=== PATIENT | female | born 1950 | race African-American/Black ===

== ENCOUNTER → 2017-01-13 10:56 | Outpatient (CLI) | payer MEDICARE, OTHER ==
[~2017-01-13 10:56] MED LIST: BUSPAR5 MG PO; HYDROCODONE-APA1 TAB PO; IBUPROFEN800 MG PO; TENORMIN25 MG PO; VIC-FORTE CAPSUL1 MG PO; VITAMIN C1000 MG PO; ZETIA10 MG PO
[2017-03-02 06:05] VITALS: BMI 28.8
== END | disposition home or self-care (01) ==
LOC: D.MRI 10:56
DX: M25.511 Pain in right shoulder (principal)

== ENCOUNTER 2017-03-02 05:19 | Day surgery (SDC) | payer MEDICARE, OTHER ==
[2017-03-01 16:02] LABS: HEMATOCRIT 39.3 % (36.0-48.0); HEMOGLOBIN 12.3 g/dL (12-16); MCH 26.8 pg (26.0-34.0); MCHC 31.3 g/dL (31.0-37.0); MCV 85.6 fL (80.0-100.0); MEAN PLATELET VOLUME 11.4 fL (7.4-10.4); RBC 4.59 10x6/uL (4.00-5.40); RDW 13.2 % (11.5-14.5)
[~2017-03-02 05:19] MED LIST changes: -HYDROCODONE-APA1 TAB PO
[2017-03-02] MEDS ORDERED: HYDROCODONE-APA1 TAB PO (08:25)
== END 2017-03-02 10:05 | disposition home or self-care (01) ==
LOC: D.OPS 05:19
PROVIDERS: Anesthesiology
DX: M75.41 Impingement syndrome of right shoulder (principal); M75.101 Unspecified rotator cuff tear or rupture of right shoulder, not specified as traumatic; M25.511 Pain in right shoulder; K21.9 Gastro-esophageal reflux disease without esophagitis; Z01.812 Encounter for preprocedural laboratory examination

== ENCOUNTER 2018-09-12 11:43 | Outpatient (CLI) | payer MEDICARE, OTHER ==
[~2018-09-12] VITALS: Ht 157.5 cm; Wt 70.5 kg
--- NOTE | ~2018-09-12 | HEMODYNAMI ---
PATIENT:MERCY DUPREE C MEDICAL RECORD: [id number] : 50 LOCATION:[facility] ADMISSION DATE: 09/12/18 Generatedon:09/12/201815:44 Patient name: MERCY DUPREE Patient #: [id number] SSN: D OB: 1950 Date of study: 09/12/2018 Page: Of Hemodynamic Procedure Report Patient Data Patient Demographics Procedure consent was obtained First Name: MERCY Gender: Female Last Name: JOON : 1950 Middle Initial: M C Age: 68 year(s) Patient #: [id number] Race: Black Additional ID: [id number] Contact details Address: [address] State: [place] City: [place] Zip code: [address] Past Medical History Allergies Allergen Reaction Date Comments Reported Other allergy 09/12/2018 Mycins, garlic, PCN, sulfa Admission Admission Data Admission Date: 09/12/2018 Admission Time: 11:43 Height (in.): 62 BSA: 1.72 (m2) Height (cm.): 157.48 BMI: 28.41 (kg/m2) Weight (lbs.): 155.32 Weight (kg.): 70.45 Lab Results Lab Result Date: 09/12/2018 Lab Result Time: 0:00 Biochemistry Name Units Result Min Max BUN mg/dl 12 --(-*--)-- 7 18 Creatinine mg/dl 0.9 --(-*--)-- 0.6 1.3 CBC Name Units Result Min Max Hematocrit % 37.8 *-(----)-- 42 54 Hemoglobin g/dl 11.8 *-(----)-- 13.5 17.5 Procedure Procedure Types Cath Procedure Diagnostic Procedure [facility] w/Coronaries Procedure Description Procedure Date Procedure Date: 09/12/2018 Procedure Start Time: 15:34 Procedure End Time: 15:43 Procedure Staff Name Function Jigar Rodriguez MD Performing Physician Fariba Tam RT Monitor Gianfranco Tapia RT Scrub Sukhjinder Rob RN Nurse Sherly Baird RN Nurse Procedure Data Cath Procedure Fluoroscopy Diagnostic fluoroscopy Total fluoroscopy Time: 1.7 time: 1.7 min min Diagnostic fluoroscopy Total fluoroscopy dose: 314 dose: 314 mGy mGy Contrast Material Contrast Material Type Amount (ml) Isovue 300 48 Entry Location Entry Primary Successful Side Size Upsize Upsize Entry Closure Lomeli ccessful Closure Location (Fr) 1 (Fr) 2 (Fr) Remarks Device Remarks Femoral Right 5 Fr Mechanical tr artery Compression Estimated blood loss: 10 ml Diagnostic catheters Device Type Used For End Catheter Placement DIAGNOSTIC [place] 110cm 5 Procedure Fr catheter ([id number]) Procedure Complications No complications Procedure Medications Medication Administration Route Dosage 0.9% NaCl I.V. 100 ml/hr Oxygen etCO2 Nasal cannula 2 l/min Lidocaine 2% added to field 20 Heparin Flush Bag added to field 2 bags (1000units/500ml NS) Radial Cocktail added to field 1 syringe (Verapomil 2mg/Nitro 400mcg/Heparin 1500units) Fentanyl I.V. 50 mcg Versed I.V. 1 mg Fentanyl I.V. 50 mcg Versed I.V. 1 mg Radial Cocktail I.A. 1 syringe (Verapomil 2mg/Nitro 400mcg/Heparin 1500units) Hemodynamics Rest BSA: 1.72 (m2) O2 Consumption: Estimated: 155.09 (ml/min) O2 Consumption indexed : Estimated:90.17 (ml/min/m) Heart Rate: 63 (bpm) Pressure Samples Time Site Value (mmHg) Purpose Heart Use Rate(bpm) 15:38 LV 96/0,8 Snapshot 63 15:38 AO 101/59(77) Pullback 71 15:38 LV 109/5,8 Pullback 71 Gradients Valve Time Site 1 Site 2 Mean SEP/DFP Peak To Heart Use (mmHg) (sec/min) Peak Rate (mmHg) (bpm) Aortic 15:38 LV AO 4 14 8 71 109/5,8 101/59(77) Calculations Valve P-P Mean Valve Index Valve Source Name Gradient Area Flow (cm2) Aortic 8 4 8 4 Snapshots Pre Cath Intra NCS Post Cath Vital Signs Time Heart Resp SPO2 etCO2 NIBP Rhythm Pain Sedation Rate (ipm) (%) (mmHg) (mmHg) Status Level (bpm) 15:24:01 63 18 100 0 124/70(93) NSR 0 (11) 10(A) , No pain 15:28:04 64 17 100 30.8 129/79(93) NSR 0 (11) 10(A) , No pain 15:32:16 62 16 92 26.3 103/63(81) NSR 0 (11) 10(A) , No pain 15:36:12 55 17 100 38.3 114/87(99) NSR 0 (11) 10(A) , No pain 15:40:19 66 17 98 40.6 114/59(78) NSR 0 (11) 10(A) , No pain 15:43:30 64 17 100 40.6 108/67(79) NSR 0 (11) 10(A) , No pain Medications Time Medication Route Dose Verified Delivered Reason Notes Effectiveness by by 15:27:49 0.9% NaCl I.V. 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 50 mcg Jigar Sukhjinder for sedation Michael Rob RN 15:30:49 Versed I.V. 1 mg Jigar Sukhjinder for sedation Michael Rob RN 15:37:23 Fentanyl I.V. 50 mcg Jigar Sukhjinder for sedation Michael Rob RN 15:37:28 Versed I.V. 1 mg Jigar Sukhjinder for sedation Michael Rob RN 15:37:52 Radial Cocktail I.A. 1 Jigar Jigar for (Verapomil syringe Michael Rodriguez MD vasodilation 2mg/Nitro 400mcg/Heparin 1500units) Procedure Log Time Note 14:51:50 Gianfranco Tapia RT(R) sent for patient. Start room use. 15:01:08 Patient Height : 62 inches 15:01:15 Patient Weight : 155.32 lbs 15:01:47 Diagnostic Cath status Elective 15:01:51 Time tracking: Regular hours (M-F 7:00 - 5:00) 15:01:57 Plan of Care:Hemodynamics will remain stable., Cardiac rhythm will remain stable., Comfort level will be maintained., Respiratory function will remain adequate., Patient/ family verbilizes understanding of procedure., Procedure tolerated without complication., Recovers from procedure without complications.. 15:02:02 Patient received from Pre/Post Procedure Room to CCL 2 Alert and oriented. Tansferred to table in Supine position. 15:02:04 Warm blankets applied, and kami hugger turned on for patient comfort. 15:08:36 Correct patient and procedure confirmed by team. 15:08:38 Signed procedure consent form obtained from patient. 15:09:03 Pre-procedure instructions explained to patient. 15:09:05 Family in waiting room. 15:09:07 Patient NPO since Midnight. 15:09:57 Patient allergic to Other allergyMycins, garlic, PCN, sulfa 15:10:00 Is the patient allergic to Iodine/contrast media? No. 15:10:16 Was the patient premedicated? Yes 15:10:26 Airway obstruction? No ? 15:10:39 Dentures? Yes in tight 15:10:54 Patient diabetic? No. 15:10:57 Snore? Yes 15:11:01 Sleep apnea? No 15:11:12 Patient pain scale 0/10 ?. 15:11:26 IV patent on arrival in left forearm with 0.9% NaCl at KVO. 15:11:42 Lab results completed and on chart. 15:11:48 Right Radial & Right Groin area was prepped with chlora-prep and draped in sterile fashion 15:11:49 Alarms reviewed by R. N. 15:11:50 Sharps counted by scrub and verified by R.N. 15:11:53 Physician paged 15:14:27 Use device set Radial Dx or PCI 15:14:28 ACIST Syringe (43862) opened to sterile field. 15:14:29 Medline Cath Pack ([id number]) opened to sterile field. 15:14:30 Bag Decanter () opened to sterile field. 15:14:31 DIAGNOSTIC WIRE .035 260cm J wire ([id number]) opened to sterile field. 15:14:32 ACIST Hand Control (43716) opened to sterile field. 15:14:33 ACIST Manifold (69007) opened to sterile field. 15:14:33 Tegaderm 4 x 4 (1626W) opened to sterile field. 15:14:34 MBrace Wrist Support ([id number]) opened to sterile field. 15:14:38 SHEATH 6Fr Prelude Radial ([id number]) opened to sterile field. 15:19:14 Lab Result : Hemoglobin 11.8 g/dl 15:19:14 Lab Result : Creatinine 0.9 mg/dl 15:19:14 Lab Result : BUN 12 mg/dl 15:19:14 Lab Result : Hematocrit 37.8 % 15:22:51 Vital chart was started 15:27:49 0.9% NaCl 100 ml/hr I.V. was administered by Sherly Baird RN; used for procedure; 15:27:57 Oxygen 2 l/min etCO2 Nasal cannula was administered by Sherly Baird RN; used for procedure; 15:28:03 Lidocaine 2% 20ml vial added to field was administered by Jigar Rodriguez MD; for local anesthetic; 15:28:09 Heparin Flush Bag (1000units/500ml NS) 2 bags added to field was administered by Jigar Rodriguez MD; used for procedure; 15:28:16 Radial Cocktail (Verapomil 2mg/Nitro 400mcg/Heparin 1500units) 1 syringe added to field was administered by Jigar Rodriguez MD; used for procedure; 15:30:34 Physician arrived 15:30:34 --------ALL STOP TIME OUT------ 15:30:35 Final Timeout: patient, procedure, and site verified with staff and physician. All members of the team are in agreement. 15:30:38 Right Radial & Left Groin site verified by team. 15:30:41 Fentanyl 50 mcg I.V. was administered by Sukhjinder Rob RN; for sedation; 15:30:49 Versed 1 mg I.V. was administered by Sukhjinder Rob RN; for sedation; 15:34:01 Procedure started. 15:34: Full Disclosure recording started 15:34:15 Local anesthetic to right radial artery with Lidocaine 2% by Jgiar Rodriguez MD.INITIAL ACCESS ONLY 15:34:27 Zero performed for pressure channel P1 15:34:44 Zero performed for pressure channel P1 15:36:04 A 5 Fr sheath was inserted into the Right Femoral artery 15:37:23 Fentanyl 50 mcg I.V. was administered by Sukhjinder Rob RN; for sedation; 15:37:28 Versed 1 mg I.V. was administered by Sukhjinder Rob RN; for sedation; 15:37:39 NEEDLE Cook 21G 4cm Radial ([id number]) opened to sterile field. 15:37:47 A DIAGNOSTIC [place] 110cm 5 Fr catheter ([id number]) was advanced over the wire and used for Procedure. 15:37:52 Radial Cocktail (Verapomil 2mg/Nitro 400mcg/Heparin 1500units) 1 syringe I.A. was administered by Jigar Rodriguez MD; for vasodilation; 15:38:35 EF : 60 % 15:39:00 LCA angiography performed. 15:40:04 RCA angiography performed. 15:40:25 Catheter removed. 15:40:29 TR BAND Standard ([id number]) opened to sterile field. 15:41:02 Sheath removed intact; hemostasis achieved with Mechanical Compression to the Right Femoral artery. 15:41:05 Procedure ended.(Physican Out) 15:41:29 Fluoroscopy time 01.70 minutes. 15:41:33 Fluoroscopy dose: 314 mGy 15:41:33 Flurop Dose total: 314 15:41:37 Contrast amount:Isovue 300 48ml. 15:41:39 Sharps counted by scrub and verified by R.N. 15:42:00 Insertion/operative site no bleeding no hematoma. 15:42:09 Post Procedure Pulses reassessed and unchanged 15:42:14 Post-procedure physical assessment completed. ASA score P 2 - A patient with mild systemic disease as per Jigar Rodriguez MD. 15:42:18 Post procedure rhythm: unchanged. 15:42:20 Estimated blood loss: 10 ml 15:42:22 Post procedure instruction explained to patient.Patient verbalizes understanding. 15:42:30 Procedure and supply charges have been captured, reviewed, submitted and are correct. 15:43:02 Procedure Complication : No complications 15:43:06 Vital chart was stopped 15:43:07 See physician's report for complete and final results. 15:43:09 Report given to Pre/Post Procedure Room. 15:43:12 Patient transfered to Pre/Post Procedure Room with Stretcher. 15:43:14 Procedure ended. 15:43:14 Full Disclosure recording stopped 15:43:17 End room use (Document Last) 15:44:12 TR band inflated with 10cc of air. Device Usage Item Name Manufacture Quantity Catalog Number Hospital Part Current M inimal Lot# / Charge Number Stock Stock Serial# Code ACIST Syringe Acist 1 08131 308789 688896 109975 2 0 (70729) [employer] Medline Cath Medline 1 [id number] 970743 06379 728385 5 Pack ([id number]) Bag Decanter Microtek 1 2001S 202683 18862 673200 5 () [employer] Inc. DIAGNOSTIC WIRE St [place] 1 783506 180158 530290 623097 3 0 .035 260cm J wire (003891) ACIST Hand Acist 1 20246 640418 367818 118057 5 Control (49637) [employer] ACIST Manifold Acist 1 57549 663244 199982 017653 5 (29880) [employer] Tegaderm 4 x 4 3M 1 1626W 547135 647894 060755 5 (1626W) MBrace Wrist Advanced 1 140-0250-00 758904 99021 057300 5 Support Vascular ([id number]) Dynamics SHEATH 6Fr Merit 1 [id number] 127664 737623 198218 5 Prelude Radial Medical ([id number]) NEEDLE Cook 21G Cook Medical 1 [id number] 170905 218072 561324 5 4cm Radial (H70914) DIAGNOSTIC Terumo 1 14-4665 305706 550169 512267 5 [place] 110cm 5 Fr catheter (379662) TR BAND Terumo 1 [id number] 960545 215002 831175 4 0 Standard ([id number]) Signature Audit [place] Stage Time Signature Unsigned Intra-Procedure 09/12/2018 Fariba Tam 3:44:29 PM RT(R) Signatures Monitor : Fariba Tam Signature : RT Date : Time : [address] [place] [address]
[~2018-09-12 11:43] MED LIST changes: +HYDROCODONE-APA1 TAB PO
[2018-09-12] MEDS ORDERED: CRESTOR40 MG PO (12:31)
[2018-09-12] MEDS ORDERED: OMEPRAZOLE20 M1 PO (12:32)
[2018-09-12 12:42] VITALS: BP 129/64; Ht 157.5 cm; Wt 70.5 kg
[2018-09-12 12:58] LABS: BASOPHILS 0.4 % (0-2); EOSINOPHILS 1.3 % (0-7); HEMATOCRIT 37.8 % (36.0-48.0); HEMOGLOBIN 11.8 g/dL (12-16); IMMATURE GRANULOCYTES 0.2 % (0-5); LYMPHOCYTES 38.5 % (15-50); MCH 26.2 pg (26.0-34.0); MCHC 31.2 g/dL (31.0-37.0); MEAN PLATELET VOLUME 11.1 fL (7.4-10.4); MONOCYTES 6.7 % (2-11); NEUTROPHILS 52.9 % (40-80); PLATELET COUNT 215 10x3/uL (130-400); RDW 12.9 % (11.5-14.5); WBC 5.5 10x3/uL (4.8-10.8)
[2018-09-12 13:18] LABS: ANION GAP 8.4 mmol/L (8-16); CALCIUM 9.1 mg/dL (8.5-10.1); CARBON DIOXIDE 29.7 mmol/L (21.0-32.0); CREATININE - SERUM 0.9 mg/dL (0.6-1.3); POTASSIUM - SERUM 4.1 mmol/L (3.5-5.1)
== END 2018-09-12 17:50 | disposition home or self-care (01) ==
LOC: D.CATH 11:43
PROVIDERS: Internal Medicine Cardiovascular Disease
DX: I25.10 Atherosclerotic heart disease of native coronary artery without angina pectoris (principal); R94.30 Abnormal result of cardiovascular function study, unspecified; Z01.812 Encounter for preprocedural laboratory examination